=== PATIENT | male | born 1985 ===

== ENCOUNTER 2021-09-28 16:42 | Emergency (ER) | payer BC ==
[~2021-09-28] VITALS: Ht 180.3 cm; Wt 74.8 kg
--- NOTE | 2021-09-28 16:50 | NUR ---
To ER bed 1, c/o L hand laceraration landing on a sharp tree edge s/p GLF. not UTD w tdap, aaox3, breathing even and non labored, awaiting md bellamy
[2021-09-28] MEDS ORDERED: TDAP [DIPH/PERTUSSIS/TET] 0.5 ML VIAL IM ONE ×2 (17:15→17:30)
[2021-09-28] MEDS ORDERED: LIDOCAINE HCL/PF 1% 30 ML SDV ONE (17:21)
[2021-09-28] MEDS ORDERED: HYDROCODONE/APAP 5/325MG TABLET ONE (17:23)
--- NOTE | 2021-09-28 17:26 | NUR ---
WOUND CARE DONE. PA AT PT'S BEDSIDE FOR SUTURES
[2021-09-28] MEDS ORDERED: HYDROCODONE/APAP 5/325MG TABLET PO ONE (17:30)
[2021-09-28] MEDS ORDERED: LIDOCAINE HCL/PF 1% 30 ML VIAL TP ONE (17:30)
[2021-09-28] MEDS ORDERED: CEPH500C2 PO (18:32)
[2021-09-28] MEDS ORDERED: HYDR-3972 PO (18:32)
[2021-09-28 18:55] VITALS: BP 139/82
--- NOTE | 2021-09-28 18:55 | NUR ---
Patient discharged to home in stable condition. Written and verbal after care instructions given. Patient verbalizes understanding of instruction.
== END 2021-09-28 18:56 | disposition home or self-care (01) ==
LOC: ER 16:45
DX: S61.412A Laceration without foreign body of left hand, initial encounter (principal); W01.0XXA Fall on same level from slipping, tripping and stumbling without subsequent striking against object, initial encounter; Y93.89 Activity, other specified; Y92.89 Other specified places as the place of occurrence of the external cause; Y99.8 Other external cause status
CPT/HCPCS: 12004; 73130; 90471; 90715; 99283; J3490 ×2